=== PATIENT | female | born 1955 | race Two or more races ===

== ENCOUNTER 2017-06-23 20:30 | Emergency (ER) | payer MEDICAID ==
[~2017-06-23] VITALS: Ht 149.9 cm; Wt 64.0 kg
[2017-06-23 21:36] VITALS: BP 102/55
[2017-06-24] MEDS ORDERED: HYDROcodone-ACET 5/325MG TAB PO ONE (02:00)
== END 2017-06-24 02:11 | disposition home or self-care (01) ==
LOC: ER 20:40
DX: S46.811A Strain of other muscles, fascia and tendons at shoulder and upper arm level, right arm, initial encounter (principal); I10 Essential (primary) hypertension; W18.39XA Other fall on same level, initial encounter; Y93.89 Activity, other specified; Y92.89 Other specified places as the place of occurrence of the external cause; Y99.8 Other external cause status
CPT/HCPCS: 73200; 93005

== ENCOUNTER 2017-10-20 13:46 | Inpatient (IN) | payer MEDICAID ==
[~2017-10-20] VITALS: Ht 149.9 cm; Wt 67.8 kg
[2017-10-20 14:43] LABS: Basophils # (auto) 0 uL; Basophils % (auto) 0.2 % (0.0-2.0); Eosinophils # (auto) 0 uL; Eosinophils % (auto) 0.2 % (0.0-7.0); Hematocrit 37.9 % (36.0-46.0); Hemoglobin 13.1 g/dL (12.2-16.2); Lymphocytes # (auto) 1.6 uL; Lymphocytes % (auto) 19.6 % (10.0-50.0); Mean Corpuscular Hemoglobin 33.9 pg (28.0-32.0); Mean Corpuscular Hgb Conc. 34.7 g/dL (32.0-36.0); Mean Corpuscular Volume 97.7 fL (80.0-100.0); Monocytes # (auto) 0.4 uL; Monocytes % (auto) 5.4 % (0.0-12.0); Neutrophils # (auto) 6.2 uL; Neutrophils % (auto) 74.6 % (37.0-80.0); Platelet Count (auto) 295 10^3/uL (140-450); Red Blood Cells 3.88 10^6/uL (4.0-5.20); Red Cell Distribution Width 11.4 % (11.8-14.3); White Blood Cell 8.2 10^3/uL (4.4-10.8)
[2017-10-20 15:05] LABS: BUN/Creatinine Ratio 17.2; Bilirubin, Total 0.6 mg/dL (0.2-1.0); Calcium 9.4 mg/dL (8.5-10.1); Potassium 3.7 mmol/L (3.5-5.1); Total Protein 7.7 g/dL (6.4-8.2)
[2017-10-20 15:38] LABS: Urine Bacteria NONE SEEN /hpf (None Seen); Urine Blood 2+ /uL (Negative); Urine Mucus FEW (None Seen); Urine Specific Gravity 1.018 (1.001-1.035); Urine WBC 2 /hpf (0 - 5)
[2017-10-20] MEDS ORDERED: SODIUM CHLORIDE 0.9% 1,000 ML IVB ONE (15:52)
[2017-10-20] MEDS ORDERED: KETOROLAC TROMETH 30 MG/ML 1ML VIAL IV ONE (16:00)
[2017-10-20] MEDS ORDERED: ONDANSETRON HCL 4 MG/2 ML VIAL IV ONE (18:00)
[2017-10-20] MEDS ORDERED: MORPHINE SULFATE 4 MG/ML SYR/VIAL IV ONE (18:00)
[2017-10-20 19:28] LABS: Eosinophils # (auto) 0 uL; Eosinophils % (auto) 0.1 % (0.0-7.0)
[2017-10-20 19:29] LABS: Basophils # (auto) 0 uL; Basophils % (auto) 0.2 % (0.0-2.0); Hematocrit 36.1 % (36.0-46.0); Hemoglobin 12.7 g/dL (12.2-16.2); Lymphocytes # (auto) 1.3 uL; Lymphocytes % (auto) 15.3 % (10.0-50.0); Mean Corpuscular Hemoglobin 34.4 pg (28.0-32.0); Mean Corpuscular Hgb Conc. 35.3 g/dL (32.0-36.0); Mean Corpuscular Volume 97.4 fL (80.0-100.0); Monocytes # (auto) 0.5 uL; Monocytes % (auto) 6.2 % (0.0-12.0); Neutrophils # (auto) 6.7 uL; Neutrophils % (auto) 78.2 % (37.0-80.0); Nucleated Red Blood Cells % 0.1 %; Platelet Count (auto) 270 10^3/uL (140-450); Red Blood Cells 3.71 10^6/uL (4.0-5.20); Red Cell Distribution Width 11.4 % (11.8-14.3); White Blood Cell 8.6 10^3/uL (4.4-10.8)
[2017-10-20 19:40] LABS: INR 0.98 (0.9-1.15); Prothrombin Time 10.7 sec (9.37-12.3)
[2017-10-20 19:44] LABS: Albumin 3.9 g/dL (3.4-5.0); BUN/Creatinine Ratio 21.2; Bilirubin, Total 0.7 mg/dL (0.2-1.0); Calcium 9.2 mg/dL (8.5-10.1); Potassium 3.4 mmol/L (3.5-5.1); Total Protein 7.5 g/dL (6.4-8.2)
[2017-10-20] MEDS ORDERED: ACETAMINOPHEN 325 MG TAB PO PRN (21:00)
[2017-10-20] MEDS ORDERED: ONDANSETRON HCL 4 MG/2 ML VIAL IV PRN (21:00)
[2017-10-20] MEDS ORDERED: DOCUSATE SOD 100 MG CAP PO PRN (21:00)
[2017-10-20] MEDS ORDERED: cefTRIAXone 1GM/10ml IVPUSH 10 ML IV ONE (21:00)
[2017-10-20] MEDS: SODIUM CHLORIDE 0.9% 1,000 ML IV SCH (21:20)
[2017-10-20 21:35] VITALS: BP 127/77
[2017-10-20 21:40] VITALS: BP 127/77
[2017-10-20] MEDS: FAMOTIDINE 20 MG TAB PO SCH (22:24)
[2017-10-20] MEDS: HYDROcodone-ACET 5/325MG TAB PO PRN (22:28)
[2017-10-21] VITALS (7 sets, daily range): BP systolic 100–129; BP diastolic 66–78
[2017-10-21] MEDS: MORPHINE SULFATE 4 MG/ML SYR/VIAL IV PRN ×2 (00:43→10:58)
[2017-10-21] MEDS: HYDROcodone-ACET 5/325MG TAB PO PRN (04:03)
[2017-10-21 06:25] LABS: Basophils # (auto) 0 uL; Lymphocytes # (auto) 2.5 uL; Monocytes # (auto) 0.8 uL; Neutrophils # (auto) 3.8 uL; Nucleated Red Blood Cells % 0.1 %
[2017-10-21 06:31] LABS: Basophils % (auto) 0.1 % (0.0-2.0); Eosinophils # (auto) 0.1 uL; Eosinophils % (auto) 1.1 % (0.0-7.0); Hematocrit 32.4 % (36.0-46.0); Hemoglobin 11.5 g/dL (12.2-16.2); Lymphocytes % (auto) 34.9 % (10.0-50.0); Mean Corpuscular Hemoglobin 35.1 pg (28.0-32.0); Mean Corpuscular Hgb Conc. 35.4 g/dL (32.0-36.0); Mean Corpuscular Volume 99.1 fL (80.0-100.0); Monocytes % (auto) 11.2 % (0.0-12.0); Neutrophils % (auto) 52.7 % (37.0-80.0); Platelet Count (auto) 232 10^3/uL (140-450); Red Blood Cells 3.27 10^6/uL (4.0-5.20); Red Cell Distribution Width 11.7 % (11.8-14.3); White Blood Cell 7.1 10^3/uL (4.4-10.8)
[2017-10-21 06:50] LABS: Albumin 3.2 g/dL (3.4-5.0); BUN/Creatinine Ratio 20.4; Bilirubin, Total 0.5 mg/dL (0.2-1.0); Calcium 8.3 mg/dL (8.5-10.1); Potassium 3.4 mmol/L (3.5-5.1); Total Protein 6.4 g/dL (6.4-8.2)
[2017-10-21] MEDS: FAMOTIDINE 20 MG TAB PO SCH ×2 (10:00→21:33)
[2017-10-21] MEDS: ATENOLOL 50 MG TAB PO SCH (10:00)
[2017-10-21] MEDS: LOSARTAN POTASSIUM 25 MG TAB PO SCH (10:00)
[2017-10-21] MEDS: HCTZ 25 MG TAB PO SCH (10:00)
[2017-10-21] MEDS: SODIUM CHLORIDE 0.9% 1,000 ML IV SCH (11:04)
[2017-10-21] MEDS ORDERED: ceFAZolin 1GM/50ML 50 ML IV ONE (13:12)
[2017-10-21] MEDS ORDERED: MIDAZOLAM HCL 1MG/1ML-2 ML VIAL ONE (13:28)
[2017-10-21] MEDS ORDERED: fentaNYL CITRATE 100 MCG/2 ML VL ONE (13:28)
[2017-10-21] MEDS ORDERED: SODIUM CHLORIDE LOCK 10 ML ONE (13:28)
[2017-10-21] MEDS ORDERED: PROPOFOL 10 MG/ML 20 ML IV ONE (13:28)
[2017-10-21] MEDS ORDERED: MEPERIDINE HCL (50 MG/ML) 1 ML VIAL ONE (13:28)
[2017-10-21] MEDS ORDERED: ROCURONIUM 10MG/ML 10ML VIAL IV ONE (13:28)
[2017-10-21] MEDS ORDERED: KETOROLAC TROMETH 60MG/2ML VIAL IM ONE (14:04)
[2017-10-21] MEDS ORDERED: GLYCOPYRROLATE 0.2 MG/ML 1ML VIAL ONE (14:04)
[2017-10-21] MEDS ORDERED: NEOSTIGMINE 1 MG/ML INJ (10mg/10ML VIAL) ONE (14:04)
[2017-10-21] MEDS: LACTATED RINGER'S 1,000 ML IV SCH ×2 (14:23→21:54)
[2017-10-21] MEDS ORDERED: METOCLOPRAMIDE HCL 5MG/ml INJ 2ml VIAL IV ONE (14:30)
[2017-10-21] MEDS ORDERED: HYDROmorphone HCL 2 MG/ML VL IV PRN (14:30)
[2017-10-21] MEDS ORDERED: MORPHINE SULF INJ 2 MG/ML SYRINGE 1ML IV PRN (14:30)
[2017-10-21] MEDS: ceFAZolin 1GM/50ML 50 ML IV SCH ×2 (15:34→23:14)
[2017-10-21] MEDS ORDERED: MORPHINE SULFATE 4 MG/ML SYR/VIAL IV PRN (18:30)
[2017-10-21] MEDS: KETOROLAC TROMETH 30 MG/ML 1ML VIAL IV PRN (21:34)
[2017-10-21] MEDS ORDERED: cefTRIAXone 1GM/10ml IVPUSH 10 ML IV SCH (22:00)
[2017-10-22] MEDS: KETOROLAC TROMETH 30 MG/ML 1ML VIAL IV PRN (03:58)
[2017-10-22 05:00] VITALS: BP 111/67
[2017-10-22] MEDS: LACTATED RINGER'S 1,000 ML IV SCH (06:13)
[2017-10-22] MEDS: ceFAZolin 1GM/50ML 50 ML IV SCH (06:34)
[2017-10-22] MEDS ORDERED: HYDR12.56 PO (07:58)
[2017-10-22] MEDS ORDERED: CHOL20007 OR (07:58)
[2017-10-22] MEDS ORDERED: LORA-622 PO (07:58)
[2017-10-22] MEDS ORDERED: ATEN50TA PO (07:58)
[2017-10-22] MEDS ORDERED: LOS25T GT (07:58)
[2017-10-22 08:12] LABS: Basophils # (auto) 0 uL; Basophils % (auto) 0.3 % (0.0-2.0); Eosinophils # (auto) 0.1 uL; Monocytes # (auto) 0.5 uL; Monocytes % (auto) 8.1 % (0.0-12.0); White Blood Cell 6.2 10^3/uL (4.4-10.8)
[2017-10-22 08:14] LABS: Eosinophils % (auto) 1.6 % (0.0-7.0); Hematocrit 28.5 % (36.0-46.0); Hemoglobin 10.1 g/dL (12.2-16.2); Lymphocytes # (auto) 1.7 uL; Lymphocytes % (auto) 27.7 % (10.0-50.0); Mean Corpuscular Hemoglobin 35.2 pg (28.0-32.0); Mean Corpuscular Hgb Conc. 35.4 g/dL (32.0-36.0); Mean Corpuscular Volume 99.6 fL (80.0-100.0); Neutrophils # (auto) 3.9 uL; Neutrophils % (auto) 62.3 % (37.0-80.0); Platelet Count (auto) 187 10^3/uL (140-450); Red Blood Cells 2.86 10^6/uL (4.0-5.20); Red Cell Distribution Width 11.5 % (11.8-14.3)
[2017-10-22 08:58] VITALS: BP 120/76
[2017-10-22] MEDS: HYDROcodone-ACET 5/325MG TAB PO PRN ×3 (09:31→18:39)
[2017-10-22] MEDS: FAMOTIDINE 20 MG TAB PO SCH ×2 (09:32→21:31)
[2017-10-22] MEDS: LOSARTAN POTASSIUM 25 MG TAB PO SCH (09:32)
[2017-10-22] MEDS: HCTZ 25 MG TAB PO SCH (09:34)
[2017-10-22] MEDS: ATENOLOL 50 MG TAB PO SCH (09:34)
[2017-10-22] MEDS ORDERED: POTASSIUM CHL 20 Meq TABLET PO ONE (10:15)
[2017-10-22 12:48] VITALS: BP 114/71
[2017-10-22 17:19] VITALS: BP 117/68
[2017-10-22] MEDS: TEMAZEPAM 15 MG CAP PO PRN (21:43)
[2017-10-22 22:37] VITALS: BP 112/61
[2017-10-23 05:20] VITALS: BP 136/72
[2017-10-23 06:32] LABS: Basophils # (auto) 0 uL; Eosinophils # (auto) 0.2 uL; Mean Corpuscular Volume 101.1 fL (80.0-100.0); Monocytes # (auto) 0.5 uL; Neutrophils # (auto) 3.9 uL; White Blood Cell 6.7 10^3/uL (4.4-10.8)
[2017-10-23 06:36] LABS: Basophils % (auto) 0.3 % (0.0-2.0); Eosinophils % (auto) 3.1 % (0.0-7.0); Hematocrit 30.4 % (36.0-46.0); Hemoglobin 10.6 g/dL (12.2-16.2); Lymphocytes # (auto) 2.1 uL; Lymphocytes % (auto) 30.9 % (10.0-50.0); Mean Corpuscular Hemoglobin 35.1 pg (28.0-32.0); Mean Corpuscular Hgb Conc. 34.8 g/dL (32.0-36.0); Neutrophils % (auto) 57.7 % (37.0-80.0); Platelet Count (auto) 201 10^3/uL (140-450); Red Blood Cells 3.01 10^6/uL (4.0-5.20); Red Cell Distribution Width 11.6 % (11.8-14.3)
[2017-10-23 06:57] LABS: BUN/Creatinine Ratio 16.7; Calcium 8.3 mg/dL (8.5-10.1); Potassium 3.8 mmol/L (3.5-5.1)
[2017-10-23] MEDS: HYDROcodone-ACET 5/325MG TAB PO PRN ×4 (08:07→21:38)
[2017-10-23 09:00] VITALS: BP 128/77
[2017-10-23] MEDS: HCTZ 25 MG TAB PO SCH (09:49)
[2017-10-23] MEDS: LOSARTAN POTASSIUM 25 MG TAB PO SCH (09:49)
[2017-10-23] MEDS: FAMOTIDINE 20 MG TAB PO SCH ×2 (09:49→21:15)
[2017-10-23] MEDS: ATENOLOL 50 MG TAB PO SCH (09:50)
[2017-10-23 13:00] VITALS: BP 117/68
[2017-10-23 17:00] VITALS: BP 102/69
[2017-10-23] MEDS: TEMAZEPAM 15 MG CAP PO PRN ×2 (21:15→23:26)
[2017-10-23 22:00] VITALS: BP 102/64
[2017-10-24 05:14] VITALS: BP 108/66
[2017-10-24 06:17] LABS: Basophils # (auto) 0 uL; Basophils % (auto) 0.4 % (0.0-2.0); Eosinophils # (auto) 0.3 uL; Lymphocytes # (auto) 2.2 uL; Monocytes # (auto) 0.4 uL
[2017-10-24 06:19] LABS: Eosinophils % (auto) 5.4 % (0.0-7.0); Hematocrit 30.2 % (36.0-46.0); Hemoglobin 10.4 g/dL (12.2-16.2); Lymphocytes % (auto) 39.1 % (10.0-50.0); Mean Corpuscular Hemoglobin 34.8 pg (28.0-32.0); Mean Corpuscular Hgb Conc. 34.3 g/dL (32.0-36.0); Mean Corpuscular Volume 101.7 fL (80.0-100.0); Monocytes % (auto) 7.4 % (0.0-12.0); Neutrophils # (auto) 2.7 uL; Neutrophils % (auto) 47.7 % (37.0-80.0); Nucleated Red Blood Cells % 0.2 %; Platelet Count (auto) 215 10^3/uL (140-450); Red Blood Cells 2.97 10^6/uL (4.0-5.20); Red Cell Distribution Width 11.5 % (11.8-14.3); White Blood Cell 5.6 10^3/uL (4.4-10.8)
[2017-10-24 06:32] LABS: BUN/Creatinine Ratio 15.9; Calcium 8.6 mg/dL (8.5-10.1); Potassium 3.8 mmol/L (3.5-5.1)
[2017-10-24] MEDS: HYDROcodone-ACET 5/325MG TAB PO PRN ×2 (08:13→13:14)
[2017-10-24 09:00] VITALS: BP 124/69
[2017-10-24] MEDS: ATENOLOL 50 MG TAB PO SCH (10:00)
[2017-10-24] MEDS: LOSARTAN POTASSIUM 25 MG TAB PO SCH (10:10)
[2017-10-24] MEDS: FAMOTIDINE 20 MG TAB PO SCH (10:10)
[2017-10-24] MEDS: HCTZ 25 MG TAB PO SCH (10:11)
== END 2017-10-24 15:20 | disposition home or self-care (01) | DRG 513 ==
LOC: ER 13:46 → OVERFLOW 13:47 → CENTRAL 21:34
PROVIDERS: ADMIT Nurse Practitioner; ATTEND Internal Medicine Pulmonary Disease
PROC: 0UT10ZZ Resection of Left Ovary, Open Approach (ICD-10-PCS; 2017-10-21)
PROC: 0UT60ZZ Resection of Left Fallopian Tube, Open Approach (ICD-10-PCS; principal; 2017-10-21 13:28)
DX: N83.512 Torsion of left ovary and ovarian pedicle (principal); E44.1 Mild protein-calorie malnutrition; I10 Essential (primary) hypertension; N83.292 Other ovarian cyst, left side; G47.00 Insomnia, unspecified; K59.00 Constipation, unspecified; E87.1 Hypo-osmolality and hyponatremia; Z68.30 Body mass index [BMI] 30.0-30.9, adult; Z80.3 Family history of malignant neoplasm of breast; Z98.51 Tubal ligation status
CPT/HCPCS: 36415; 71046; 74176; 76856; 80048; 80053; 81001; 84484; 84702; 85025; 85610; 85730; 86301; 86304; 86850; 86900; 86901; 87040; 93005; 96361; 96374; 96375; 99291; J0690; J1885; J2250; J2405; J2704

== ENCOUNTER 2021-07-17 21:12 | Emergency (ER) | payer MEDICAID ==
[~2021-07-17] VITALS: Ht 147.3 cm; Wt 62.4 kg
[~2021-07-17 21:12] MED LIST: ATEN50TA PO; CHOL20007 OR; HYDR12.56 PO; LORA-622 PO; LOS25T GT
[2021-07-17] MEDS ORDERED: ACETAMINOPHEN 500 MG TAB PO ONE (22:45)
[2021-07-18] MEDS ORDERED: TETANUS-DIPTH-ACEL PERTUSSIS 0.5ML SYR Tdap IM ONE (01:30)
[2021-07-18 02:00] VITALS: BP 140/89
== END 2021-07-18 02:17 | disposition home or self-care (01) ==
LOC: ER 21:13
DX: S61.412A Laceration without foreign body of left hand, initial encounter (principal); I10 Essential (primary) hypertension; W26.0XXA Contact with knife, initial encounter; Y93.89 Activity, other specified; Y92.89 Other specified places as the place of occurrence of the external cause; Y99.8 Other external cause status
CPT/HCPCS: 12002; 90471; 90715

== ENCOUNTER 2023-07-24 10:05 | Inpatient (IN) | payer OTHER, MEDICAID ==
[~2023-07-24] VITALS: Ht 165.1 cm; Wt 57.5 kg
[~2023-07-24 10:05] MED LIST changes: -HYDR12.56 PO; +HYDR12.59 PO
[2023-07-24 11:00] VITALS: PULSE 83; RESP 15; O2SAT 96
[2023-07-24 12:29] LABS: Alanine Aminotransferase 48 U/L (7-40); Albumin 4.5 g/dL (3.2-4.8); Alkaline Phosphatase 55 U/L (46-116); Anion Gap 9 (5-15); Aspartate Aminotransferase 29 U/L (13-40); BUN/Creatinine Ratio 20.7 (10.0-20.0); Bilirubin, Total 1.4 mg/dL (0.2-1.0); Blood Urea Nitrogen 6 mg/dL (9-23); Calcium 8.3 mg/dL (8.7-10.4); Carbon Dioxide 24 mmol/L (20-30); Chloride 70 mmol/L (98-107); Glucose 115 mg/dL (74-106); Potassium 2.9 mmol/L (3.5-5.1); Total Protein 6.7 g/dL (5.7-8.2)
[2023-07-24 12:31] LABS: Sodium 103 mmol/L (136-145)
[2023-07-24] MEDS ORDERED: SODIUM CHLORIDE 0.9% 1,000 ML IV ONE (12:45)
[2023-07-24] MEDS ORDERED: SODIUM CHL 3% 500 ML IV ONE (12:45)
[2023-07-24 13:07] LABS: Basophils # (auto) 0.1 10 ^3/uL (0-0.2); Basophils % (auto) 0.3 % (0.0-2.0); Eosinophils # (auto) 0.1 10 ^3/uL (0-0.8); Eosinophils % (auto) 0.4 % (0.0-7.0); Hematocrit 36.6 % (36.0-46.0); Lymphocytes # (auto) 2.4 10 ^3/uL (0.4-5.4); Lymphocytes % (auto) 12.9 % (10.0-50.0); Mean Corpuscular Hemoglobin 32.7 pg (28.0-32.0); Mean Corpuscular Hgb Conc. 35.7 g/dL (32.0-36.0); Mean Corpuscular Volume 91.5 fL (80.0-100.0); Monocytes # (auto) 1.2 10 ^3/uL (0-1.3); Monocytes % (auto) 6.4 % (0.0-12.0); Neutrophils # (auto) 14.7 10 ^3/uL (1.6-8.6); Nucleated Red Blood Cells % 0.1 %; Red Cell Distribution Width 11.5 % (11.8-14.3); White Blood Cell 18.4 10^3/uL (4.4-10.8)
[2023-07-24] MEDS ORDERED: FUROSEMIDE 20 MG/2 ML VIAL IV ONE (13:15)
[2023-07-24] MEDS ORDERED: POTASSIUM CHL 20MEQ/100ML 100 ML IV SCH ×3 (13:15→20:30)
[2023-07-24] MEDS ORDERED: VANCOMYCIN PER PHARMACY 0 MG IV SCH (14:30)
[2023-07-24] MEDS ORDERED: ONDANSETRON HCL 4 MG/2 ML VIAL IV PRN (14:30)
[2023-07-24 14:41] LABS: Creatinine, Urine 61.5 mg/dL (30.0-125.0)
[2023-07-24 14:49] LABS: Urine Bacteria NONE SEEN /hpf (None Seen); Urine Blood 1+ /uL (Negative); Urine Clarity Clear (Clear); Urine Color Yellow (Yellow); Urine Protein, UAD 1+ (Negative); Urine Specific Gravity 1.019 (1.001-1.035); Urine Urobilinogen Normal (Negative); Urine WBC 1 /hpf (0 - 5); Urine pH 7.5 (5.0-8.0)
[2023-07-24] MEDS ORDERED: VANCOMYCIN 1GM/200ML 250 ML IV SCH (15:15)
[2023-07-24 15:29] LABS: Chloride 72 mmol/L (98-107); Potassium 2.8 mmol/L (3.5-5.1)
[2023-07-24 15:30] LABS: Anion Gap 10 (5-15); Carbon Dioxide 22 mmol/L (20-30)
[2023-07-24] MEDS: ENOXAPARIN SOD 40 MG/0.4 ML SYRINGE SC SCH (15:30)
[2023-07-24 15:31] LABS: Calcium 8.1 mg/dL (8.7-10.4)
[2023-07-24 15:35] LABS: Glucose 118 mg/dL (74-106); Uric Acid 2.1 mg/dL (3.1-7.8)
[2023-07-24 15:36] LABS: BUN/Creatinine Ratio 18.5 (10.0-20.0); Blood Urea Nitrogen 5 mg/dL (9-23); Lipase 112 U/L (12-53); Magnesium 1.5 mg/dL (1.6-2.6)
[2023-07-24 15:38] LABS: Phosphorus 1.9 mg/dL (2.4-5.1)
[2023-07-24] MEDS: POTASSIUM CHL 20MEQ/100ML 100 ML IV SCH ×5 (15:39→23:30)
[2023-07-24 16:09] LABS: Platelet Estimate Adequate
[2023-07-24 16:11] LABS: Sodium 104 mmol/L (136-145)
[2023-07-24] MEDS: VANCOMYCIN 750mg/250ml 250 ML IV SCH (16:50)
[2023-07-24] MEDS ORDERED: MAGNESIUM SULFATE 1GM/100ML 100 ML IV ONE (17:15)
[2023-07-24] MEDS ORDERED: hydrALAZINE HCL 20 MG/ML VL IV PRN (17:30)
[2023-07-24] MEDS ORDERED: IOHEXOL 300 MG/ML 100ML BOTTLE IJ ONE (19:15)
[2023-07-24 19:34] LABS: Amphetamine Screen, Urine Neg (NEGATIVE); Barbiturate Scree,Urine Neg (NEGATIVE); Benzodiazephine Screen, Urine Neg (NEGATIVE); Cannabinoid Screen, Urine Neg (NEGATIVE); Cocaine Screen, Urine Neg (NEGATIVE); Opiate Scree,Urine Neg (NEGATIVE); Phencyclidine Screen, Urine Neg (NEGATIVE)
[2023-07-24 19:35] VITALS: PULSE 86; RESP 13; O2SAT 98
[2023-07-24 19:52] LABS: Chloride 76 mmol/L (98-107); Potassium 3.1 mmol/L (3.5-5.1)
[2023-07-24 19:53] LABS: Anion Gap 8 (5-15); Carbon Dioxide 21 mmol/L (20-30)
[2023-07-24 19:54] LABS: Calcium 7.4 mg/dL (8.7-10.4)
[2023-07-24 19:58] LABS: Glucose 161 mg/dL (74-106)
[2023-07-24 19:59] LABS: BUN/Creatinine Ratio 19.2 (10.0-20.0); Blood Urea Nitrogen < 5 mg/dL (9-23)
[2023-07-24 20:00] LABS: Sodium 105 mmol/L (136-145)
[2023-07-24] MEDS ORDERED: HYDROcodone-ACET 5/325MG TAB PO PRN (22:45)
[2023-07-25 02:58] LABS: Potassium 2.8 mmol/L (3.5-5.1)
[2023-07-25] MEDS ORDERED: DESMOPRESSIN ACET 4 MCG/1 ML AMPULE IV STA (04:11)
[2023-07-25] MEDS ORDERED: D5W 5% 1,000 ML IV ONE (04:15)
[2023-07-25] MEDS: POTASSIUM CHL 20MEQ/100ML 100 ML IV SCH ×5 (04:27→18:00)
[2023-07-25] MEDS ORDERED: DESMOPRESSIN ACET 4 MCG/1 ML AMPULE ONE (04:40)
[2023-07-25 05:16] VITALS: PULSE 86; RESP 13; O2SAT 98
[2023-07-25 07:57] LABS: Alanine Aminotransferase 43 U/L (7-40); Albumin 4.3 g/dL (3.2-4.8); Alkaline Phosphatase 57 U/L (46-116); Anion Gap 8 (5-15); Aspartate Aminotransferase 26 U/L (13-40); Calcium 8.2 mg/dL (8.5-10.1); Carbon Dioxide 21 mmol/L (20-30); Chloride 79 mmol/L (98-107); Cholesterol 168 mg/dL (< 200); Glucose 155 mg/dL (74-106); HDL Cholesterol 68 mg/dL (40-59); LDL Cholesterol 75 mg/dL (< 100); Potassium 3.5 mmol/L (3.5-5.1); Triglycerides 90 mg/dL (< 150)
[2023-07-25 07:58] LABS: Bilirubin, Total 1.1 mg/dL (0.2-1.0); Total Protein 6.5 g/dL (5.7-8.2)
[2023-07-25 07:59] LABS: Basophils # (auto) 0 10 ^3/uL (0-0.2); Hemoglobin 13.3 g/dL (12.2-16.2); Mean Corpuscular Hemoglobin 33.7 pg (28.0-32.0); Red Cell Distribution Width 11.4 % (11.8-14.3)
[2023-07-25] MEDS: VANCOMYCIN 750mg/250ml 250 ML IV SCH (08:00)
[2023-07-25 08:01] LABS: Basophils % (auto) 0.1 % (0.0-2.0); Eosinophils # (auto) 0.1 10 ^3/uL (0-0.8); Eosinophils % (auto) 0.6 % (0.0-7.0); Hematocrit 36.6 % (36.0-46.0); Lymphocytes # (auto) 1.4 10 ^3/uL (0.4-5.4); Lymphocytes % (auto) 10.5 % (10.0-50.0); Mean Corpuscular Hgb Conc. 36.4 g/dL (32.0-36.0); Mean Corpuscular Volume 92.6 fL (80.0-100.0); Monocytes % (auto) 7.6 % (0.0-12.0); Neutrophils # (auto) 10.8 10 ^3/uL (1.6-8.6); Neutrophils % (auto) 81.2 % (37.0-80.0); Red Blood Cells 3.95 10^6/uL (4.0-5.20); White Blood Cell 13.3 10^3/uL (4.4-10.8)
[2023-07-25] MEDS ORDERED: IOHEXOL 300 MG/ML 100ML BOTTLE IJ ONE (08:07)
[2023-07-25 08:14] LABS: BUN/Creatinine Ratio 15.6 (10.0-20.0); Blood Urea Nitrogen < 5 mg/dL (9-23)
[2023-07-25 08:17] LABS: Sodium 108 mmol/L (136-145)
[2023-07-25 09:32] LABS: Magnesium 1.7 mg/dL (1.6-2.6)
[2023-07-25] MEDS: ENOXAPARIN SOD 40 MG/0.4 ML SYRINGE SC SCH (10:00)
[2023-07-25] MEDS ORDERED: MORPHINE SULFATE INJ 2 MG/ml SYRG IV PRN (13:30)
[2023-07-25] MEDS ORDERED: SODIUM CHLORIDE 0.9% 1,000 ML IV SCH (13:45)
[2023-07-25] MEDS: SODIUM CHLORIDE 0.9% 1,000 ML IV SCH ×2 (14:45→20:16)
[2023-07-25] MEDS ORDERED: POTASSIUM CHL 20MEQ/100ML 100 ML IV ONE ×2 (15:07→17:37)
[2023-07-25] MEDS ORDERED: SODIUM CHL 3% 500 ML IV ONE (15:30)
[2023-07-25 17:14] LABS: Chloride 81 mmol/L (98-107); Potassium 4.2 mmol/L (3.5-5.1)
[2023-07-25 17:15] LABS: Anion Gap 9 (5-15); Carbon Dioxide 19 mmol/L (20-30)
[2023-07-25 17:20] LABS: Glucose 97 mg/dL (74-106)
[2023-07-25 17:22] LABS: BUN/Creatinine Ratio 19.2 (10.0-20.0); Blood Urea Nitrogen < 5 mg/dL (9-23)
[2023-07-25 17:25] LABS: Sodium 109 mmol/L (136-145)
[2023-07-25] MEDS ORDERED: SODIUM CHL 3% 500 ML ONE (17:36)
[2023-07-25 18:25] VITALS: PULSE 85; RESP 15; O2SAT 98
[2023-07-25 19:25] VITALS: PULSE 88; RESP 11; O2SAT 98
[2023-07-25] MEDS ORDERED: UREA 15gm PO Powder PKG PO SCH (22:00)
[2023-07-25 22:31] LABS: Chloride 84 mmol/L (98-107); Potassium 4.2 mmol/L (3.5-5.1)
[2023-07-25 22:32] LABS: Anion Gap 7 (5-15); Carbon Dioxide 20 mmol/L (20-30)
[2023-07-25 22:33] LABS: Calcium 8.2 mg/dL (8.5-10.1)
[2023-07-25 22:37] LABS: Glucose 89 mg/dL (74-106)
[2023-07-25 23:03] LABS: BUN/Creatinine Ratio 17.2 (10.0-20.0); Blood Urea Nitrogen < 5 mg/dL (9-23); Sodium 111 mmol/L (136-145)
[2023-07-26] VITALS (11 sets, daily range): BP systolic 82–122; BP diastolic 44–72; PULSE 77–102; RESP 11–19; TEMP 97.5–98.7; O2SAT 97–100
[2023-07-26] MEDS: VANCOMYCIN 750mg/250ml 250 ML IV SCH ×2 (02:23→16:31)
[2023-07-26 03:24] LABS: Chloride 84 mmol/L (98-107); Potassium 3.6 mmol/L (3.5-5.1)
[2023-07-26 03:25] LABS: Anion Gap 7 (5-15); Carbon Dioxide 20 mmol/L (20-30)
[2023-07-26 03:26] LABS: Calcium 7.7 mg/dL (8.7-10.4)
[2023-07-26 03:30] LABS: Glucose 163 mg/dL (74-106)
[2023-07-26 03:31] LABS: BUN/Creatinine Ratio 16.1 (10.0-20.0); Blood Urea Nitrogen < 5 mg/dL (9-23); Sodium 111 mmol/L (136-145)
[2023-07-26 05:33] LABS: Hematocrit 34.6 % (36.0-46.0); Hemoglobin 12.5 g/dL (12.2-16.2); Mean Corpuscular Hemoglobin 33.6 pg (28.0-32.0); Mean Corpuscular Hgb Conc. 36.1 g/dL (32.0-36.0); Red Blood Cells 3.72 10^6/uL (4.0-5.20); Red Cell Distribution Width 11.5 % (11.8-14.3); White Blood Cell 13.4 10^3/uL (4.4-10.8)
[2023-07-26 05:43] LABS: Alanine Aminotransferase 35 U/L (7-40); Albumin 4.2 g/dL (3.2-4.8); Alkaline Phosphatase 58 U/L (46-116); Anion Gap 9 (5-15); Aspartate Aminotransferase 18 U/L (13-40); Bilirubin, Total 1.1 mg/dL (0.2-1.0); Carbon Dioxide 20 mmol/L (20-30); Chloride 83 mmol/L (98-107); Glucose 133 mg/dL (74-106); Magnesium 1.6 mg/dL (1.6-2.6); Potassium 3.1 mmol/L (3.5-5.1); Total Protein 6.4 g/dL (5.7-8.2)
[2023-07-26 05:48] LABS: BUN/Creatinine Ratio 17.9 (10.0-20.0); Blood Urea Nitrogen < 5 mg/dL (9-23)
[2023-07-26 05:49] LABS: Band Neutrophils % (manual) 0; Basophils % (manual) 0 (0.0-2.0); Blast Cells 0; Eosinophils % (manual) 0 (0-7); Metamyelocytes % 0; Myelocytes % 0; Promyelocytes % 0; Reactive Lymphocytes 0
[2023-07-26 05:55] LABS: Sodium 112 mmol/L (136-145)
[2023-07-26 06:36] LABS: Lymphocytes % (manual) 10 (10.0-50.0); Monocytes % (manual) 8 (0-12)
[2023-07-26 06:37] LABS: Platelet Estimate Adequate
[2023-07-26] MEDS ORDERED: POTASSIUM CHL 20 Meq TABLET PO ONE (08:45)
[2023-07-26] MEDS: POTASSIUM CHL 20MEQ/100ML 100 ML IV SCH ×2 (14:00→15:12)
[2023-07-26] MEDS ORDERED: POTASSIUM CHL 20MEQ/100ML 200 ML IV ONE (15:05)
[2023-07-26 18:44] LABS: Chloride 88 mmol/L (98-107); Potassium 3.5 mmol/L (3.5-5.1)
[2023-07-26 18:45] LABS: Anion Gap 8 (5-15); Calcium 8.1 mg/dL (8.7-10.4); Carbon Dioxide 21 mmol/L (20-30)
[2023-07-26 18:50] LABS: Glucose 102 mg/dL (74-106)
[2023-07-26 19:21] LABS: BUN/Creatinine Ratio 14.7 (10.0-20.0); Blood Urea Nitrogen < 5 mg/dL (9-23)
[2023-07-26 19:22] LABS: Sodium 117 mmol/L (136-145)
[2023-07-26] MEDS: SODIUM CHLORIDE 0.9% 1,000 ML IV SCH (23:35)
[2023-07-27] VITALS (28 sets, daily range): BP systolic 110–131; BP diastolic 47–81; PULSE 84–122; RESP 10–18; TEMP 97.4–98.6; O2SAT 97–100
[2023-07-27 00:55] LABS: Anion Gap 7 (5-15); Carbon Dioxide 19 mmol/L (20-30); Chloride 91 mmol/L (98-107); Potassium 3.8 mmol/L (3.5-5.1)
[2023-07-27 00:56] LABS: Calcium 8.1 mg/dL (8.7-10.4)
[2023-07-27 01:01] LABS: Glucose 94 mg/dL (74-106)
[2023-07-27 01:03] LABS: BUN/Creatinine Ratio 17.2 (10.0-20.0); Blood Urea Nitrogen < 5 mg/dL (9-23)
[2023-07-27 01:05] LABS: Sodium 117 mmol/L (136-145)
[2023-07-27] MEDS: VANCOMYCIN 750mg/250ml 250 ML IV SCH ×2 (04:17→16:30)
[2023-07-27 05:45] LABS: Alanine Aminotransferase 26 U/L (7-40); Albumin 3.8 g/dL (3.2-4.8); Alkaline Phosphatase 56 U/L (46-116); Anion Gap 6 (5-15); Aspartate Aminotransferase 13 U/L (13-40); Carbon Dioxide 21 mmol/L (20-30); Chloride 92 mmol/L (98-107); Glucose 141 mg/dL (74-106); Magnesium 1.6 mg/dL (1.6-2.6); Potassium 3.2 mmol/L (3.5-5.1)
[2023-07-27 05:46] LABS: Basophils # (auto) 0 10 ^3/uL (0-0.2); Basophils % (auto) 0.2 % (0.0-2.0); Bilirubin, Total 0.8 mg/dL (0.2-1.0); Eosinophils # (auto) 0.1 10 ^3/uL (0-0.8); Eosinophils % (auto) 0.8 % (0.0-7.0); Hematocrit 34.4 % (36.0-46.0); Lymphocytes # (auto) 1.4 10 ^3/uL (0.4-5.4); Lymphocytes % (auto) 11.7 % (10.0-50.0); Mean Corpuscular Hemoglobin 33.2 pg (28.0-32.0); Mean Corpuscular Hgb Conc. 34.8 g/dL (32.0-36.0); Mean Corpuscular Volume 95.2 fL (80.0-100.0); Monocytes # (auto) 0.7 10 ^3/uL (0-1.3); Monocytes % (auto) 6.2 % (0.0-12.0); Neutrophils # (auto) 9.6 10 ^3/uL (1.6-8.6); Neutrophils % (auto) 81.1 % (37.0-80.0); Red Blood Cells 3.62 10^6/uL (4.0-5.20); Red Cell Distribution Width 11.4 % (11.8-14.3); Total Protein 5.8 g/dL (5.7-8.2); White Blood Cell 11.9 10^3/uL (4.4-10.8)
[2023-07-27 06:48] LABS: BUN/Creatinine Ratio 15.6 (10.0-20.0); Blood Urea Nitrogen < 5 mg/dL (9-23); Sodium 119 mmol/L (136-145)
[2023-07-27] MEDS: SODIUM CHLORIDE 0.9% 1,000 ML IV SCH (09:51)
[2023-07-27] MEDS ORDERED: MAGNESIUM SULFATE 1GM/100ML 200 ML IV ONE (10:26)
[2023-07-27] MEDS ORDERED: POTASSIUM CHL 20MEQ/100ML 200 ML IV ONE (10:26)
[2023-07-27] MEDS: POTASSIUM CHL 20MEQ/100ML 100 ML IV SCH ×2 (10:27→11:55)
[2023-07-27] MEDS ORDERED: HYDROcodone-ACET 5/325MG TAB ONE ×2 (11:18→20:53)
[2023-07-27] MEDS: HYDROcodone-ACET 5/325MG TAB PO PRN ×2 (11:20→20:55)
[2023-07-27] MEDS: MAGNESIUM SULFATE 1GM/100ML 100 ML IV SCH ×2 (11:55→15:00)
[2023-07-27 19:23] LABS: Chloride 97 mmol/L (98-107); Potassium 3.5 mmol/L (3.5-5.1)
[2023-07-27 19:24] LABS: Anion Gap 7 (5-15); Calcium 8.6 mg/dL (8.5-10.1); Carbon Dioxide 23 mmol/L (20-30)
[2023-07-27 19:29] LABS: Glucose 131 mg/dL (74-106)
[2023-07-27 19:34] LABS: BUN/Creatinine Ratio 15.2 (10.0-20.0); Blood Urea Nitrogen < 5 mg/dL (9-23); Sodium 127 mmol/L (136-145)
[2023-07-28] VITALS (37 sets, daily range): BP systolic 91–130; BP diastolic 48–80; PULSE 93–126; RESP 11–20; TEMP 97.7–99.1; O2SAT 92–100
[2023-07-28 00:45] LABS: Chloride 99 mmol/L (98-107); Potassium 3.6 mmol/L (3.5-5.1); Sodium 128 mmol/L (136-145)
[2023-07-28 00:46] LABS: Anion Gap 6 (5-15); Carbon Dioxide 23 mmol/L (20-30)
[2023-07-28 00:51] LABS: Glucose 108 mg/dL (74-106)
[2023-07-28 00:54] LABS: BUN/Creatinine Ratio 15.6 (10.0-20.0); Blood Urea Nitrogen < 5 mg/dL (9-23)
[2023-07-28 03:23] LABS: Basophils # (auto) 0 10 ^3/uL (0-0.2); Basophils % (auto) 0.3 % (0.0-2.0); Eosinophils # (auto) 0.1 10 ^3/uL (0-0.8); Eosinophils % (auto) 0.8 % (0.0-7.0); Hematocrit 36.6 % (36.0-46.0); Hemoglobin 12.4 g/dL (12.2-16.2); Lymphocytes # (auto) 1.5 10 ^3/uL (0.4-5.4); Lymphocytes % (auto) 12.7 % (10.0-50.0); Mean Corpuscular Hemoglobin 33.3 pg (28.0-32.0); Mean Corpuscular Hgb Conc. 33.8 g/dL (32.0-36.0); Mean Corpuscular Volume 98.3 fL (80.0-100.0); Monocytes # (auto) 0.9 10 ^3/uL (0-1.3); Monocytes % (auto) 7.3 % (0.0-12.0); Neutrophils # (auto) 9.4 10 ^3/uL (1.6-8.6); Neutrophils % (auto) 78.9 % (37.0-80.0); Red Blood Cells 3.72 10^6/uL (4.0-5.20); Red Cell Distribution Width 11.8 % (11.8-14.3); White Blood Cell 11.9 10^3/uL (4.4-10.8)
[2023-07-28] MEDS: SODIUM CHLORIDE 0.9% 1,000 ML IV SCH ×2 (04:14→16:32)
[2023-07-28] MEDS: VANCOMYCIN 750mg/250ml 250 ML IV SCH (04:35)
[2023-07-28 06:42] LABS: Anion Gap 7 (5-15); Carbon Dioxide 24 mmol/L (20-30); Chloride 96 mmol/L (98-107); Potassium 3.3 mmol/L (3.5-5.1); Sodium 127 mmol/L (136-145)
[2023-07-28 06:48] LABS: Glucose 183 mg/dL (74-106)
[2023-07-28 06:53] LABS: BUN/Creatinine Ratio 12.8 (10.0-20.0); Blood Urea Nitrogen < 5 mg/dL (9-23)
[2023-07-28] MEDS ORDERED: POTASSIUM CHL 20 Meq TABLET PO ONE (09:15)
[2023-07-28] MEDS: DOCUSATE SOD 100 MG CAP PO SCH ×2 (09:18→21:32)
[2023-07-28 12:11] LABS: Chloride 99 mmol/L (98-107); Sodium 128 mmol/L (136-145)
[2023-07-28 12:12] LABS: Anion Gap 5 (5-15); Calcium 8.4 mg/dL (8.7-10.4); Carbon Dioxide 24 mmol/L (20-30)
[2023-07-28 12:17] LABS: Glucose 103 mg/dL (74-106)
[2023-07-28 12:33] LABS: BUN/Creatinine Ratio 15.6 (10.0-20.0); Blood Urea Nitrogen < 5 mg/dL (9-23)
[2023-07-28] MEDS: MAGNESIUM SULFATE 1GM/100ML 100 ML IV SCH ×2 (14:22→15:27)
[2023-07-28] MEDS: VANCOMYCIN 1GM/200ML 250 ML IV SCH (16:17)
[2023-07-29] VITALS (24 sets, daily range): BP systolic 81–121; BP diastolic 36–74; PULSE 9–113; RESP 14–22; TEMP 97.9–99.2; O2SAT 83–100
[2023-07-29] MEDS: VANCOMYCIN 1GM/200ML 250 ML IV SCH ×2 (03:50→15:57)
[2023-07-29 06:28] LABS: Basophils # (auto) 0 10 ^3/uL (0-0.2); Basophils % (auto) 0.4 % (0.0-2.0); Eosinophils # (auto) 0.2 10 ^3/uL (0-0.8); Eosinophils % (auto) 1.3 % (0.0-7.0); Hematocrit 33.4 % (36.0-46.0); Hemoglobin 11.3 g/dL (12.2-16.2); Lymphocytes # (auto) 1.9 10 ^3/uL (0.4-5.4); Lymphocytes % (auto) 16.2 % (10.0-50.0); Mean Corpuscular Hemoglobin 33.2 pg (28.0-32.0); Mean Corpuscular Hgb Conc. 33.7 g/dL (32.0-36.0); Mean Corpuscular Volume 98.5 fL (80.0-100.0); Monocytes % (auto) 8.8 % (0.0-12.0); Neutrophils # (auto) 8.4 10 ^3/uL (1.6-8.6); Neutrophils % (auto) 73.3 % (37.0-80.0); Red Blood Cells 3.39 10^6/uL (4.0-5.20); Red Cell Distribution Width 11.8 % (11.8-14.3); White Blood Cell 11.5 10^3/uL (4.4-10.8)
[2023-07-29 06:32] LABS: Chloride 99 mmol/L (98-107); Potassium 3.5 mmol/L (3.5-5.1); Sodium 131 mmol/L (136-145)
[2023-07-29 06:33] LABS: Anion Gap 7 (5-15); Calcium 8.5 mg/dL (8.5-10.1); Carbon Dioxide 25 mmol/L (20-30)
[2023-07-29] MEDS: SODIUM CHLORIDE 0.9% 1,000 ML IV SCH ×2 (06:36→21:51)
[2023-07-29 06:38] LABS: Glucose 91 mg/dL (74-106)
[2023-07-29 06:39] LABS: BUN/Creatinine Ratio 17.2 (10.0-20.0); Blood Urea Nitrogen < 5 mg/dL (9-23)
[2023-07-29] MEDS: DOCUSATE SOD 100 MG CAP PO SCH ×2 (09:53→21:51)
[2023-07-29 12:04] LABS: Basophils # (auto) 0 10 ^3/uL (0-0.2); Basophils % (auto) 0.4 % (0.0-2.0); Eosinophils # (auto) 0.1 10 ^3/uL (0-0.8); Eosinophils % (auto) 1.4 % (0.0-7.0); Hematocrit 34.1 % (36.0-46.0); Hemoglobin 11.8 g/dL (12.2-16.2); Lymphocytes # (auto) 1.6 10 ^3/uL (0.4-5.4); Lymphocytes % (auto) 16.8 % (10.0-50.0); Mean Corpuscular Hemoglobin 33.5 pg (28.0-32.0); Mean Corpuscular Hgb Conc. 34.6 g/dL (32.0-36.0); Monocytes # (auto) 0.9 10 ^3/uL (0-1.3); Monocytes % (auto) 9.7 % (0.0-12.0); Neutrophils % (auto) 71.7 % (37.0-80.0); Red Blood Cells 3.52 10^6/uL (4.0-5.20); Red Cell Distribution Width 11.7 % (11.8-14.3); White Blood Cell 9.7 10^3/uL (4.4-10.8)
[2023-07-30] VITALS (35 sets, daily range): BP systolic 104–159; BP diastolic 52–90; PULSE 93–117; RESP 12–97; TEMP 98.1–99.3; O2SAT 94–99
[2023-07-30 03:14] LABS: Chloride 100 mmol/L (98-107); Potassium 3.5 mmol/L (3.5-5.1); Sodium 130 mmol/L (136-145)
[2023-07-30 03:15] LABS: Anion Gap 5 (5-15); Carbon Dioxide 25 mmol/L (20-30)
[2023-07-30 03:16] LABS: Calcium 8.3 mg/dL (8.7-10.4)
[2023-07-30 03:20] LABS: Glucose 98 mg/dL (74-106)
[2023-07-30 03:45] LABS: BUN/Creatinine Ratio 17.2 (10.0-20.0); Blood Urea Nitrogen < 5 mg/dL (9-23)
[2023-07-30] MEDS: VANCOMYCIN 1GM/200ML 250 ML IV SCH (04:27)
[2023-07-30] MEDS: DOCUSATE SOD 100 MG CAP PO SCH ×2 (08:50→22:00)
[2023-07-30] MEDS: SODIUM CHLORIDE 0.9% 1,000 ML IV SCH (12:03)
[2023-07-30] MEDS: VANCOMYCIN 750mg/250ml 250 ML IV SCH (15:34)
[2023-07-31] MEDS: VANCOMYCIN 750mg/250ml 250 ML IV SCH ×3 (00:15→21:44)
[2023-07-31 05:40] LABS: Chloride 99 mmol/L (98-107); Potassium 3.3 mmol/L (3.5-5.1); Sodium 133 mmol/L (136-145)
[2023-07-31 05:41] LABS: Anion Gap 6 (5-15); Calcium 8.6 mg/dL (8.7-10.4); Carbon Dioxide 28 mmol/L (20-30)
[2023-07-31 05:46] LABS: Glucose 104 mg/dL (74-106)
[2023-07-31] MEDS: SODIUM CHLORIDE 0.9% 1,000 ML IV SCH (06:52)
[2023-07-31 06:55] LABS: Blood Urea Nitrogen < 5 mg/dL (9-23)
[2023-07-31 08:00] VITALS: PULSE 118; PULSE 88; RESP 20; O2SAT 99
[2023-07-31 09:00] VITALS: BP 144/90; PULSE 118; RESP 20; TEMP 97.7; O2SAT 99
[2023-07-31] MEDS: DOCUSATE SOD 100 MG CAP PO SCH ×2 (09:06→21:44)
[2023-07-31 13:00] VITALS: BP 128/90; PULSE 107; RESP 16; TEMP 97.5; O2SAT 99
[2023-07-31 17:00] VITALS: BP 139/94; PULSE 106; RESP 24; TEMP 98.4; O2SAT 99
[2023-07-31 20:00] VITALS: BP 138/84; PULSE 113; PULSE 123; RESP 18; TEMP 98.1; O2SAT 94
[2023-07-31 22:00] VITALS: BP 125/68; PULSE 113; RESP 18; TEMP 98; O2SAT 94
[2023-08-01 04:45] VITALS: BP 102/70; PULSE 101; RESP 16; TEMP 97.4; O2SAT 98
[2023-08-01 05:13] LABS: Anion Gap 7 (5-15); Calcium 8.9 mg/dL (8.7-10.4); Carbon Dioxide 27 mmol/L (20-30); Chloride 98 mmol/L (98-107); Potassium 3.2 mmol/L (3.5-5.1); Sodium 132 mmol/L (136-145)
[2023-08-01 05:19] LABS: Glucose 102 mg/dL (74-106)
[2023-08-01 05:37] LABS: BUN/Creatinine Ratio 17.2 (10.0-20.0); Blood Urea Nitrogen < 5 mg/dL (9-23)
[2023-08-01] MEDS: VANCOMYCIN 750mg/250ml 250 ML IV SCH ×2 (06:37→18:54)
[2023-08-01] MEDS: SODIUM CHLORIDE 0.9% 1,000 ML IV SCH ×2 (06:38→15:26)
[2023-08-01 08:00] VITALS: BP 112/76; PULSE 110; PULSE 85; PULSE 96; RESP 16; TEMP 98.4; O2SAT 97
[2023-08-01] MEDS: DOCUSATE SOD 100 MG CAP PO SCH ×2 (10:00→22:53)
[2023-08-01 12:00] VITALS: BP 116/78; PULSE 117; RESP 18; TEMP 98.4; O2SAT 98
[2023-08-01] MEDS: POTASSIUM CHL 20 Meq TABLET PO SCH ×2 (15:25→18:37)
[2023-08-01 16:00] VITALS: BP 135/81; PULSE 93; RESP 16; TEMP 98.5; O2SAT 99
[2023-08-01] MEDS ORDERED: POTASSIUM CHL 20 Meq TABLET PO ONE (18:28)
[2023-08-01 19:40] VITALS: PULSE 108
[2023-08-01 22:24] VITALS: BP 135/81; PULSE 93; RESP 16; TEMP 98.5; O2SAT 99
== END 2023-08-01 23:10 | disposition short-term general hospital (02) | DRG 640 ==
LOC: ER 10:05 → EDBD 10:05 → TELE 14:33 → ICU CENTRL 07-26 08:52 → DOU IN ICU 07-26 14:38 → TELE-CENTR 07-30 23:46
PROVIDERS: ADMIT Nurse Practitioner Family; ATTEND Internal Medicine
PROC: 05HF33Z Insertion of Infusion Device into Left Cephalic Vein, Percutaneous Approach (ICD-10-PCS; principal; 2023-07-27)
PROC: B54NZZA Ultrasonography of Left Upper Extremity Veins, Guidance (ICD-10-PCS; 2023-07-27)
DX: E87.1 Hypo-osmolality and hyponatremia (principal); G93.41 Metabolic encephalopathy; I50.31 Acute diastolic (congestive) heart failure; L02.11 Cutaneous abscess of neck; E87.5 Hyperkalemia; I11.0 Hypertensive heart disease with heart failure; E87.6 Hypokalemia; E83.42 Hypomagnesemia; G62.9 Polyneuropathy, unspecified; D72.829 Elevated white blood cell count, unspecified; M19.90 Unspecified osteoarthritis, unspecified site; Z74.01 Bed confinement status; Z80.3 Family history of malignant neoplasm of breast; Z87.891 Personal history of nicotine dependence
CPT/HCPCS: 36415; 70450; 70491; 71045; 72125; 76536; 80048; 80053; 80061; 80202; 80307; 80320; 81001; 82533; 82565; 82570; 82607; 83605; 83690; 83735; 83880; 83930; 83935; 83970; 84100; 84132; 84295; 84300; 84443; 84484; 84550; 85007; 85025; 85027; 87040; 87045; 87081; 87086; 87427; 87493; 93005; 93306; 97110; 97116; 97163; 97530; 99291; G0378; J3480

== ENCOUNTER 2024-12-12 22:50 | Emergency (ER) | payer OTHER, MEDICAID ==
[~2024-12-12] VITALS: Ht 149.9 cm; Wt 56.2 kg
--- NOTE | 2024-12-12 23:59 | ED.PDOC ---
David. trauma (HPI) HPI Comments PT PRESENTED TO ED FOR LEFT RIB PAIN X2 DAYS S/P FALL. PT STATED SHE WAS WALKING DOWN STAIRS, LOST BALANCE AND TRIPPED ON THE LAST 2 STEPS OF THE STAIR CASE, ATTEMPTED TO GRAB STAIR RAIL BUT HIT LEFT RIB. PT STATED PAIN ON INSPIRATION. LEFT RIB SKIN DISCOLORATION NOTED. Chief Complaint: Rib Pain Time Seen by MD: 22:58 Primary Care Provider: Unknown Reviewed notes: Nurses Notes, Medications, Allergies Allergies: Coded Allergies: NO KNOWN ALLERGIES (Unverified , 03/19/15) Home Meds Reported Medications Losartan Potassium (Losartan Potassium) 25 Mg Tab, 25 MG GT, TAB 10/22/17 Atenolol (Atenolol) 50 Mg Tab, 50 MG PO, TAB 10/22/17 Loratadine (Claritin) 10 Mg Tab, 10 MG PO, TAB 10/22/17 Hydrochlorothiazide (Hydrochlorothiazide) 12.5 Mg Cap, 12.5 MG PO DAILY for 30 Days, MG 10/22/17 Cholecalciferol (VITAMIN D3) 2,000 Unit Tab, 2000 UNIT OR, TAB 10/22/17 Information Source: Patient Past Medical History PAST MEDICAL HISTORY: HTN Surgical History: Denies all surgeries 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 Family History Family History: Reviewed,noncontributory to illness Social History Smoker: Non-Smoker Alcohol: Denies ETOH Use Drugs: Denies Drug Use Lives In: Home Constitutional: denies: chills, diaphoresis, fatigue, fever, malaise, sweats, w eakness, others EENTM: denies: blurred vision, double vision, ear bleeding, ear discharge, ear drainage, ear pain, ear ringing, eye pain, eye redness, hearing loss, mouth pain, mouth swelling, nasal discharge, nose bleeding, nose congestion, nose pain, photophobia, tearing, throat pain, throat swelling, voice changes, others Respiratory: denies: cough, hemoptysis, orthopnea, SOB at rest, shortness of breath, SOB with excertion, stridor, wheezing, others Cardiovascular: denies: chest pain, dizzy spells, diaphoresis, Dyspnea on exertion, edema, irregular heart beat, left arm pain, lightheadedness, palpitations, PND, syncope, others Gastrointestinal: denies: abdomen distended, abdominal pain, blood streaked bowels, constipated, diarrhea, dysphagia, difficulty swallowing, hematemesis, melena, nausea, poor appetite, poor fluid intake, rectal bleeding, rectal pain, vomiting, others Genitourinary: denies: abnormal vagina bleeding, burning, dyspareunia, dysuria, flank pain, frequency, hematuria, incontinence, pain, , vagina di scharge, urgency, others Neurological: denies: dizziness, fainting, headache, left sided numbness, left sided weakness, numbness, paresthesia, pre-existing deficit, right sided numbness, right sided weakness, seizure, speech problems, tingling, tremors, weakness, others Musculoskeletal: reports: others (Right-sided rib pain); denies: back pain, gout, joint pain, joint swelling, muscle pain, muscle stiffness, neck pain Integumetry: denies: bruises, change in color, change in hair/nails, dryness, laceration, lesions, lumps, rash, wounds, others Allergic/Immunocompromised: denies: Difficulty Healing, Frequent Infections, Hives, Itching, others Hematologic/Lymphatic: denies: anemia, blood clots, easy bleeding, easy bruising, swollen glands, others Endocrine: denies: excessive hunger, excessive sweating, excessive thirst, excessive urination, flushing, intolerance to cold, intolerance to heat, unexplained weight gain, unexplained weight loss, others Physical Exam General Appearance: No Apparent Distress, Normal HEENT: Pharynx Normal Neck: Full Range of Motion, Non-Tender Respiratory: Lungs Clear, No Accessory Muscle Use, No Respiratory Distress, Normal Breath Sounds, Other (Moderate tenderness on palpation right flank over ribcage with noted ecchymosis and flail chest lacerations or abrasions) Cardiovascular: No Edema, No JVD, No Murmur, No Gallop, Normal Peripheral Pulse s, Regular Rate/Rhythm Breast Exam: Deferred Gastrointestinal: No Organomegaly, Non Tender, No Pulsatile Mass, Normal Bowel Sounds, Soft Genitalia: Deferred Pelvic: Deferred Rectal: Deferred Extremities: Normal capillary refill, Normal inspection, Normal range of motion, Non-tender, No pedal edema Musculoskeletal : Apperance: Normal Neurologic: Alert, 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 Was a procedure done?: No Differential Diagnosis Multiple Trauma: Fractures X-Ray, Labs, Meds, VS Vital Signs Date Time Temp Pulse Resp B/P (MAP) Pulse Ox O2 Delivery O2 Flow Rate FiO2 12/13/24 00:30 98.2 98 17 120/69 (86) 96 98.2 12/13/24 00:30 98 17 96 Room Air 12/12/24 23:55 98.2 106 18 116/81 (93) 95 98.2 Current Medications Medications (Trade) Dose Ordered Sig/Emily Route Start Time Stop Time Status Last Admin Ketorolac Tromethamine (Toradol Injection) 60 mg ONCE ONCE IM 12/13/24 00:00 12/13/24 00:01 DC 12/13/24 00:30 X-Ray, Labs, Meds, VS Comment CT chest shows no acute findings. Patient was given Toradol 60 mg IM reports improvement in pain and function requesting discharge at this time. Patient states has tramadol for chronic left hip pain advised to continue that as prescribed she also will take Advil at home as needed. Advised to follow up with her PCP in 2-3 days ER return precautions given patient indicates understanding agrees with discharge plan of care. Time of 1ST Reevaluation: 23:56 Reevaluation 1ST: Unchanged Time of 2ND Reevaluation: 01:00 Reevaluation 2ND: Improved Patient Education/Counseling: Diagnosis, Treatment, Prognosis, Need For Follow Up Family Education/Counseling: Diagnosis, Treatment, Prognosis, Need For Follow Up Departure 1 Departure Time of Disposition: 01:01 Impression: Primary Impression: Contusion of rib on right side Qualified Codes: S20.211A - Contusion of right front wall of thorax, initial encounter Disposition: 01 HOME / SELF CARE / HOMELESS Condition: Stable Discharged With: Spouse Critical Care Note Critical Care Time?: No Stability Stability form required: GALILEA Magana December 12, 2024 23:59
[2024-12-13 00:30] VITALS: BP 120/69; PULSE 98; RESP 17; TEMP 98.2; O2SAT 96
[2024-12-13] MEDS: KETOROLAC TROMETH 60MG/2ML VIAL IM ONE (00:30)
--- NOTE | 2024-12-13 00:42 | DVH ---
Procedure: CT CHEST WITHOUT CONTRAST Reason for study/Clinical History: Trauma, left rib pain Comparison Study: None available at time of dictation. Exam Date: 12/13/2024 12:10 AM TECHNIQUE: Multidetector CT of the chest was performed from the lung apices to the upper abdomen with out the use of intravenous contract. Axial, coronal and sagittal multiplanar reformats were performed . Radiation Dose Information: CT Dose: CTDI volume is mGy. Dose-length product is mGy*cm The dose indicators for CT are the volume Computed Tomography (CT) Dose Index (CTDIvol) and the Dose Length Product (DLP), and are measured in units of mGy and mGy-cm, respectively. These indicators are not patient dose, but values generated from the CT scanner acquisition factors. The report includes radiation exposure data for exposures received during this examination. FINDINGS: Lower neck: Unremarkable. Lungs: No focal consolidation. Mild subsegmental atelectasis in the lingula and left lower lobe. Smal l calcified granuloma noted in right upper lobe Pleura: No pleural effusion or pneumothorax. Heart/Vascular Structures: Normal heart size. No pericardial effusion. Coronary artery calcifications . Unremarkable thoracic aorta. Mediastinum / Lymph Nodes: No abnormality demonstrated. No lymphadenopathy. Musculoskeletal: No acute osseous abnormality. Multilevel thoracolumbar spondylosis. Soft tissues: Unremarkable. Upper abdomen: Probable cholelithiasis. IMPRESSION: No significant intrathoracic abnormality. Radiation optimization: All CT scans at this facility use at least one of these dose optimization charisse hniques: automated exposure control mA and/or kV adjustment per patient size (includes targeted exam s where dose is matched to clinical indication) or iterative reconstruction.
== END 2024-12-13 01:11 | disposition home or self-care (01) ==
LOC: ER 22:55
DX: S20.211A Contusion of right front wall of thorax, initial encounter (principal); I10 Essential (primary) hypertension; Z79.899 Other long term (current) drug therapy; W10.8XXA Fall (on) (from) other stairs and steps, initial encounter; Y93.01 Activity, walking, marching and hiking; Y92.89 Other specified places as the place of occurrence of the external cause; Y99.8 Other external cause status
CPT/HCPCS: 71250; 96372; 99285; J1885